=== PATIENT | female | born 1945 | race Caucasian/White ===

== ENCOUNTER 2018-05-29 09:52 | Day surgery (SDC) | payer MEDICARE, OTHER ==
[~2018-05-29] VITALS: Ht 167.6 cm; Wt 56.1 kg
[~2018-05-29 09:52] MED LIST: ALBU90OI61 INH; CHOL10002; Calcium Citrat200 MG PO; Carbidopa-Levo1 EAC1 PO; ESTER-C 1,0001 EACH PO; FISH OIL OMEGA1 EAC2 PO; GABA600 PO; LORA2 PO; OMEP20ER; Prilosec Otc20 MG; RALO60; TRAZ50; UBID100 PO; ZOLP5 PO
== END 2018-05-29 11:14 | disposition home or self-care (01) ==
LOC: ORSCSDS 09:52
PROVIDERS: Internal Medicine Gastroenterology
PROC: 0DJD8ZZ Inspection of Lower Intestinal Tract, Via Natural or Artificial Opening Endoscopic (ICD-10-PCS; principal; 2018-05-29 11:15)
DX: Z12.11 Encounter for screening for malignant neoplasm of colon (principal); K57.30 Diverticulosis of large intestine without perforation or abscess without bleeding; K55.20 Angiodysplasia of colon without hemorrhage; K64.8 Other hemorrhoids; K90.0 Celiac disease; K21.9 Gastro-esophageal reflux disease without esophagitis; G47.33 Obstructive sleep apnea (adult) (pediatric); Z79.899 Other long term (current) drug therapy
CPT/HCPCS: J3010; J7120

== ENCOUNTER → 2022-03-15 | Outpatient (CLI) | payer OTHER | END | disposition home or self-care (01) | LOC: LAB 10:51 → LAB SHORT 10:51 | DX: N39.0 Urinary tract infection, site not specified (principal) | CPT/HCPCS: 87077; 87086; 87186 ==

== ENCOUNTER → 2022-10-18 | Outpatient (CLI) | payer OTHER | END | disposition home or self-care (01) | LOC: LAB SHORT 11:45 → LAB 11:45 | DX: N39.0 Urinary tract infection, site not specified (principal) | CPT/HCPCS: 87077; 87086; 87186 ==

== ENCOUNTER → 2022-10-20 | Outpatient (CLI) | payer OTHER | END | disposition home or self-care (01) | LOC: LAB SHORT 12:15 | DX: M85.642 Other cyst of bone, left hand (principal) | CPT/HCPCS: 88304 ==

== ENCOUNTER → 2023-06-12 | Outpatient (CLI) | payer OTHER ==
[2023-06-14 10:31] LABS: Stool Occult Bld Immuno 1 Negative (NEGATIVE); Stool Occult Bld Immuno 2 Negative (NEGATIVE)
== END | disposition home or self-care (01) ==
LOC: LAB 14:46 → LAB SHORT 14:46
PROVIDERS: Hospitalist
DX: Z12.11 Encounter for screening for malignant neoplasm of colon (principal)
CPT/HCPCS: 82274

== ENCOUNTER → 2024-10-18 | Outpatient (CLI) | payer OTHER | LOC: LAB SHORT 07:50 → LAB 07:50 | DX: N39.0 Urinary tract infection, site not specified (principal) | CPT/HCPCS: 87077; 87086; 87186 ==

== ENCOUNTER → 2024-11-02 | Outpatient (CLI) | payer OTHER | LOC: LAB SHORT 12:05 → LAB 12:05 | DX: N39.0 Urinary tract infection, site not specified (principal) | CPT/HCPCS: 87086 ==

== ENCOUNTER 2025-08-28 11:39 | Day surgery (SDC) | payer OTHER ==
[~2025-08-28] VITALS: Ht 167.6 cm; Wt 57.9 kg
[~2025-08-28 11:39] MED LIST changes: +Balanced Salt Epinephrine Irrigation Solution 500 mL IR SCH; +Moxifloxacin HCL 0.5 MG/0.1 ML 0.4MLSYR RIGHTEYE SCH; +Ondansetron 4 MG SoluTab MM PRN; +PHENYLEPHRINE\\TROPICAMIDE\\TETRACAINE OPHTHALMIC DILATING SOLN RIGHTEYE PRN; +Povidone-Iodine 450 DROP/30 ML Solution ONE; +Povidone-Iodine 450 DROP/30 ML Solution RIGHTEYE SCH; +Tetracaine HCl/Pf 0.5% Opth Soln 4 ml ONE; +diazePAM 5 MG,diazePAM 2 MG PO SCH
[2025-08-28] MEDS ORDERED: METO25ER PO (12:03)
[2025-08-28] MEDS ORDERED: Crestor40 MG PO (12:03)
--- NOTE | 2025-08-28 12:53 | NUR ---
08/28/25 1253 Shantelle Villarreal 1239 BP:140/80 HR:66 O2:100% RESP:16
[2025-08-28 12:55] VITALS: BP 137/90
== END 2025-08-28 13:07 | disposition home or self-care (01) ==
LOC: ORSCSDS 11:39
PROVIDERS: Student in an Organized Health Care Education/Training Program
PROC: 08RJ3JZ Replacement of Right Lens with Synthetic Substitute, Percutaneous Approach (ICD-10-PCS; principal; 2025-08-28 13:00)
DX: H25.811 Combined forms of age-related cataract, right eye (principal); Z96.1 Presence of intraocular lens; I10 Essential (primary) hypertension; E78.5 Hyperlipidemia, unspecified; J45.909 Unspecified asthma, uncomplicated; M79.7 Fibromyalgia; Z79.899 Other long term (current) drug therapy
CPT/HCPCS: A9270; V2632